=== PATIENT | female | born 1980 | race Two or more races ===

== ENCOUNTER 2025-03-22 11:29 | Emergency (ER) | payer MEDICAID, SELFPAY ==
[2025-03-22 11:39] VITALS: BP 126/67; PULSE 65; RESP 16; TEMP 37.1; O2SAT 97; BMI 30.8
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
[2025-03-22] MEDS: KETOROLAC INJ 60 MG/2 ML VIAL 30 MG IM (12:56)
[2025-03-22 13:51] VITALS: BP 109/70; PULSE 58; RESP 18; TEMP 36.8; O2SAT 97
== END 2025-03-22 14:03 | disposition home or self-care (01) ==
PROVIDERS: Emergency Provider Family Medicine; PCP Family Medicine
DX: S13.4XXA Sprain of ligaments of cervical spine, initial encounter (principal); S33.5XXA Sprain of ligaments of lumbar spine, initial encounter; S29.9XXA Unspecified injury of thorax, initial encounter; S40.012A Contusion of left shoulder, initial encounter; V43.52XA Car driver injured in collision with other type car in traffic accident, initial encounter; Y92.410 Unspecified street and highway as the place of occurrence of the external cause
CPT/HCPCS: 72040; 72070; 72072; 72100; 81025; 96372; 99283; J1885